=== PATIENT | male | born 1990 ===

== ENCOUNTER → 2018-09-23 21:44 | Outpatient (REF) | payer OTHER, MEDICAID, SELFPAY ==
[2018-09-23 22:31] LABS: Add Manual Diff / Slide Review NO; Basophils Absolute Auto 100 /uL (0-100); Basophils Percent Auto 0.7 % (0-2); Eosinophils Absolute Auto 200 /uL (0-450); Eosinophils Percent Auto 2.5 % (2-4); Hematocrit 44.9 % (41-53); Hemoglobin 15.6 g/dL (13.5-17.5); Lymphocytes Absolute Auto 2400 /uL (1100-4500); Lymphocytes Percent Auto 33.7 % (25-40); Mean Corpuscular HGB Conc 34.8 % (30-36); Mean Corpuscular Hemoglobin 30.7 PG (26-34); Mean Corpuscular Volume 88.1 fL (80-100); Monocytes Absolute Auto 400 /uL (0-900); Monocytes Percent Auto 6.2 % (3-14); Neutrophils Absolute Auto 4100 /uL (1500-7000); Neutrophils Percent Auto 56.9 % (50-75); Platelet Count 177 X10^3/uL (150-400); Red Cell Distribution Width 12.7 % (11.6-14.8); White Blood Cell Count 7.2 X10^3/uL (4.5-11.0)
[2018-09-23 23:23] LABS: Alanine Aminotransferase 61 IU/L (21-72); Albumin 4.8 g/dL (3.5-5.0); Albumin Globulin Ratio 1.8 (1.0-2.8); Alkaline Phosphatase 114 U/L (38-126); Aspartate Aminotransferase 34 IU/L (17-59); BUN Creatinine Ratio 12.2 (6-22); Bilirubin Total 0.7 mg/dL (0.2-1.3); Blood Urea Nitrogen 11 mg/dL (9-20); Calcium 10.1 mg/dL (8.4-10.2); Carbon Dioxide 30 mmol/L (22-32); Chloride 98 mmol/L (98-107); Cholesterol 192 mg/dL (140-199); Estimated Glomerular Filt Rate > 60.0 mL/min (>60); Globulin 2.7 g/dL (1.7-4.1); Glucose 110 mg/dL (70-100); HDL Cholesterol 43 mg/dL (40-60); HEMOLYSIS < 15 (0-50); Potassium 4.4 mmol/L (3.4-5.1); Sodium 140 mmol/L (137-145); Total Protein 7.5 g/dL (6.3-8.2); Triglycerides 417 mg/dL (35-150)
[2018-09-23 23:32] LABS: Hemoglobin A1C% w Est Avg Glu 4.7 % (4.0-6.0)
[2018-09-23 23:35] LABS: Vitamin D 25 Hydroxy (D3) 34.1 ng/mL (30.0-100.0)
[2018-09-24 00:26] LABS: HIV 1 and 2 Antibody NEGATIVE (NEGATIVE); Hep C Virus Ab w/Reflex Quant NEGATIVE s/c (NEGATIVE)
[2018-09-24 01:01] LABS: Urine N gonorrhoeae NOT DETECTED
[2018-09-24 01:06] LABS: Urine Chlamydia NOT DETECTED
[2018-09-24 16:20] LABS: Thyroid Stimulating Hormone 1.13 uIU/mL (0.47-4.68)
[2018-09-26 16:35] LABS: Hepatitis A Antibody IgM NONREACTIVE (NONREACTIVE); Hepatitis Acute Panel Interp 0.05; Hepatitis B Core Antibody IgM NONREACTIVE (NONREACTIVE); Hepatitis B Surface Antigen NONREACTIVE (NONREACTIVE); Hepatitis C Antibody NONREACTIVE
[2018-09-26 22:43] LABS: RPR Screen Nonreactive (Nonreactive)
[2018-09-27 15:39] LABS: HSV 2 IGG AB < 0.90 index (< 0.90); HSV1IGG < 0.90 index (< 0.90)
[2018-09-27 16:20] LABS: Hepatitis B Surf AB Imm QUANT 19 mIU/mL (> 9)
== END ==
LOC: LAB 21:44
PROVIDERS: Visit Provider Family Medicine
DX: Z00.00 Encounter for general adult medical examination without abnormal findings (principal); Z13.1 Encounter for screening for diabetes mellitus; Z13.220 Encounter for screening for lipoid disorders; Z11.3 Encounter for screening for infections with a predominantly sexual mode of transmission
CPT/HCPCS: 36415; 80053; 80061; 80074; 82306; 83036; 84443; 85025; 86317; 86592; 86695; 86696; 86703; 86803; 87491; 87591